=== PATIENT | female | born 1970 | race Caucasian/White ===

== ENCOUNTER → 2021-06-12 10:46 | Outpatient (CLI) | payer OTHER, SELFPAY ==
--- NOTE | ~2021-06-12 | MM_ITS ---
EXAMINATION: MM screening mariel BI w [facility]na HISTORY: Screening TECHNIQUE: Craniocaudal and mediolateral oblique 3-D tomosynthesis images were obtained and synthetic 2-D images were generated. CAD analysis was submitted and interpreted. COMPARISON: No prior mammogram is available for comparison at this institution. BREAST PARENCHYMAL COMPOSITION: There are scattered areas of fibroglandular density. FINDINGS: There is no evidence of suspicious mass, calcification, or architectural distortion to sugg est malignancy in either breast. There has been no suspicious interval change. IMPRESSION: 1. No mammographic evidence of malignancy. 2. Recommend routine screening mammography in one year. BI-RADS Category 1: Negative Reviewed, dictated and finalized at location A.
== END ==
PROVIDERS: Visit Provider Obstetrics & Gynecology
DX: Z12.31 Encounter for screening mammogram for malignant neoplasm of breast (principal)
CPT/HCPCS: 77063; 77067

== ENCOUNTER → 2022-02-21 10:09 | Outpatient (CLI) | payer OTHER, SELFPAY ==
--- NOTE | ~2022-02-21 | US_ITS ---
EXAMINATION: US soft tissue chest DATE: 02/21/2022 10:55 INDICATION: Follicular cyst of the skin and subcutaneous tissue, unspecified. Right chest wall mass w ith pain. TECHNIQUE: Multiple grayscale and Doppler ultrasound images of the chest wall were obtained. COMPARISON: None FINDINGS: There is a 5 mm hypoechoic subcutaneous mass with internal vascular flow in right chest wal l. IMPRESSION: 1. 5 mm hypoechoic subcutaneous mass in right chest wall, most likely inflammation. Reviewed, dictated and finalized at location A. IMPRESSION: 1. 5 mm hypoechoic subcutaneous mass in right chest wall, most likely inflammat ion.
== END ==
PROVIDERS: Visit Provider Student in an Organized Health Care Education/Training Program
DX: L72.8 Other follicular cysts of the skin and subcutaneous tissue (principal)
CPT/HCPCS: 76604

== ENCOUNTER → 2022-04-16 13:39 | Outpatient (CLI) | payer OTHER, SELFPAY ==
--- NOTE | ~2022-04-16 | US_ITS ---
EXAMINATION: US soft tissue chest DATE: 04/16/2022 13:54 INDICATION: Follicular cyst of the skin and subcutaneous tissue, follow-up. TECHNIQUE: Grayscale and Doppler ultrasound images of the right chest soft tissues were obtained. COMPARISON: 02/21/2022 FINDINGS: 6 x 3 x 5 mm hypoechoic ovoid lesion in the dermis in the area of palpable abnormality, wit hout internal vascular flow. IMPRESSION: 1. Dermal cyst, slightly increased in size since the prior study. Reviewed, dictated and finalized at location K.
== END ==
PROVIDERS: PCP Family Medicine; Visit Provider Student in an Organized Health Care Education/Training Program
DX: L72.9 Follicular cyst of the skin and subcutaneous tissue, unspecified (principal); D23.5 Other benign neoplasm of skin of trunk
CPT/HCPCS: 76604

== ENCOUNTER → 2022-11-26 16:15 | Outpatient (CLI) | payer OTHER, SELFPAY ==
--- NOTE | ~2022-11-26 | XR_ITS ---
EXAMINATION: XR lumbar spine 2-3V DATE: 11/26/2022 16:33 INDICATION: Low back pain, unspecified. TECHNIQUE: 3 views of lumbar spine were obtained. COMPARISON: None. FINDINGS: There is 11 degrees levoscoliosis of lumbar spine. There is 3 mm retrolisthesis of L2 on L3 and L4 on L5. Vertebral body heights are normal. There is mildly decreased disc height at L3-L4 and moderately decreased disc height at L4-L5. There is multilevel mild to moderate facet joint osteoarth ritis. IMPRESSION: 1. Moderate lumbar spondylosis. 2. Lumbar levoscoliosis. Reviewed, dictated and finalized at location A. SITE ADMIN
== END ==
PROVIDERS: PCP Family Medicine; Visit Provider Nurse Practitioner Family
DX: M54.30 Sciatica, unspecified side (principal); M47.896 Other spondylosis, lumbar region
CPT/HCPCS: 72100

== ENCOUNTER → 2023-01-02 15:26 | Outpatient (CLI) | payer OTHER, SELFPAY ==
--- NOTE | ~2023-01-02 | XR_ITS ---
XR cervical spine min 6V 01/02/2023 15:50 Indication: Cervicalgia Procedure: 7 views of the cervical spine including flexion and extension views. Comparison: No prior studies for comparison. Findings: There is disc narrowing at C4-5 and C5-6 with prominent dorsal osteophytes at C5-6. There i s reversal of cervical lordosis in neutral position. No significant alteration of alignment with flex ion/extension. No prevertebral soft tissue swelling. Odontoid process within normal limits. There is moderate facet hypertrophy at multiple levels. Lung apices are normal. Impression: 1: Moderate cervical spondylosis with reversal of normal lordosis, possibly due to muscle spasm. Reviewed, dictated and finalized at location A. SETTER Impression: 1: Moderate cervical spondylosis with reversal of normal lordosis, possibly due to muscle spasm.
--- NOTE | ~2023-01-02 | XR_ITS ---
EXAMINATION: XR thoracic spine 3V DATE: 01/02/2023 15:50 INDICATION: Chronic thoracic back pain. Neck pain. TECHNIQUE: 3 views of thoracic spine on 4 radiographs were obtained. COMPARISON: None. FINDINGS: There is 13 degrees levoscoliosis of upper thoracic spine. Vertebral body heights are ashley l. There is mild to moderately decreased disc height at multiple levels in mid thoracic spine. There are endplate osteophytes at most levels. IMPRESSION: 1. Moderate thoracic spondylosis. 2. Thoracic levoscoliosis. Reviewed, dictated and finalized at location A. CARE COORDINATOR
== END ==
PROVIDERS: PCP Family Medicine; Visit Provider Nurse Practitioner Family
DX: M47.894 Other spondylosis, thoracic region (principal); M47.892 Other spondylosis, cervical region
CPT/HCPCS: 72052; 72072

== ENCOUNTER → 2023-01-25 08:24 | Outpatient (CLI) | payer OTHER, SELFPAY ==
--- NOTE | ~2023-01-25 | MR_ITS ---
MRI of the lumbar spine Clinical History: Back pain Technique: Axial T2-weighted images, and sagittal T1-weighted, T2-weighted, and T2 fat-sat images wer e acquired. Findings: There is no fracture or subluxation of the lumbar spine. Vertebral bodies maintain normal h eight and alignment. There are intraosseous hemangiomas at the T12, L2, and L3 levels. No suspicious bone marrow signal abnormality identified. At L1-L2, there is no disc bulge or herniation. No spinal canal stenosis or neural foraminal narrowin g. At L2-L3, there is minimal degenerative disc narrowing with mild right-sided facet arthropathy. No sp inal canal stenosis or neural foraminal narrowing. At L3-L4, there is minimal disc bulge with facet arthropathy. No spinal canal stenosis or neural fora javon narrowing. At L4-L5, there is mild disc bulge. No spinal canal stenosis. There is moderate right neural foramina l narrowing. Left neural foramen is preserved. At L5-S1, there is no disc bulge or herniation. No spinal canal stenosis or neural foraminal narrowin g. Paravertebral soft tissues are unremarkable. Impression: Mild degenerative spondylosis, as detailed above. There is moderate right neural foraminal narrowing at L4-L5. Reviewed, dictated and finalized at [facility]. Impression: Mild degenerative spondylosis, as detailed above. There is moderate right neura l foraminal narrowing at L4-L5.
== END ==
PROVIDERS: PCP Family Medicine; Visit Provider Nurse Practitioner Family
DX: M54.40 Lumbago with sciatica, unspecified side (principal); M47.896 Other spondylosis, lumbar region
CPT/HCPCS: 72148

== ENCOUNTER → 2023-01-25 08:27 | Outpatient (CLI) | payer OTHER, SELFPAY ==
--- NOTE | ~2023-01-25 | MR_ITS ---
MRI of the cervical spine Clinical History: Neck pain Technique: Axial T2-weighted and gradient images, and sagittal T1-weighted, T2-weighted, and STIR gil ges were acquired. Findings: There is no fracture or subluxation of the cervical spine. Vertebral bodies maintain normal height and alignment. There is mild reversal of the normal cervical lordosis. No focal bone marrow s ignal abnormality seen. At C2-C3, there is no disc bulge or herniation. No spinal canal stenosis, cord compression, or neural foraminal narrowing. At C3-C4, there is minimal disc bulge. No spinal canal stenosis, cord compression, or neural foramina l narrowing. At C4-C5, there is disc osteophyte complex, most prominent at the left paracentral to left foraminal region. There may be minimal flattening of the ventral cord on the left side. There is probable minim al left neural foraminal compromise. Right neural foramen preserved. At C5-C6, there is disc osteophyte complex eccentric in the left paracentral region. No spinal canal stenosis, cord compression, or right neural foraminal narrowing. Left neural foramen is significantly narrowed. At C6-C7, there is no disc bulge or herniation. No spinal canal stenosis, cord compression, or neural foraminal narrowing. No abnormal signal seen in the spinal cord. Paravertebral soft tissues are unremarkable. Impression: Left neural foraminal narrowing at C4-C5 and C5-C6, related to left paracentral disc osteophyte compl exes. Possible minimal flattening of the left ventral cord at C4-C5. Reviewed, dictated and finalized at location . Impression: Left neural foraminal narrowing at C4-C5 and C5-C6, related to left paracentral disc osteophyte complexes. Possible minimal flattening of the left ventral cord at C4-C5.
== END ==
PROVIDERS: PCP Family Medicine; Visit Provider Nurse Practitioner Family
DX: M54.2 Cervicalgia (principal)
CPT/HCPCS: 72141

== ENCOUNTER → 2023-06-18 10:06 | Outpatient (CLI) | payer OTHER, SELFPAY ==
--- NOTE | ~2023-06-18 | MM_ITS ---
EXAMINATION: MM screening mariel BI w meghna HISTORY: Screening mammogram TECHNIQUE: Craniocaudal and mediolateral oblique 3-D tomosynthesis images were obtained and synthetic 2-D images were generated. CAD analysis was submitted and interpreted. COMPARISON: 06/12/2021, 01/09/2011 BREAST PARENCHYMAL COMPOSITION: There are scattered areas of fibroglandular density. FINDINGS: RIGHT BREAST: No suspicious mass, calcification, or architectural distortion are identified to sugges t malignancy. There has been no suspicious interval change. LEFT BREAST: There is a possible mass in the middle third of the outer breast best appreciated 5 cm f rom the nipple on the craniocaudal view. IMPRESSION: 1. Possible left breast mass. 2. Additional mammographic views and possible breast ultrasound are recommended. BI-RADS Category 0: Incomplete: Needs additional imaging evaluation. Reviewed, dictated and finalized at location A. IMPRESSION: 1. Possible left breast mass. 2. Additional mammographic views and possible breast ultrasound are recommended . BI-RADS Category 0: Incomplete: Needs additional imaging evaluation.
== END ==
PROVIDERS: PCP Nurse Practitioner Family; Visit Provider Obstetrics & Gynecology
DX: Z12.31 Encounter for screening mammogram for malignant neoplasm of breast (principal); R92.8 Other abnormal and inconclusive findings on diagnostic imaging of breast
CPT/HCPCS: 77063; 77067

== ENCOUNTER → 2023-07-10 07:36 | Outpatient (CLI) | payer OTHER, SELFPAY ==
--- NOTE | ~2023-07-10 | MMUS_ITS ---
EXAMINATION: MM diagnostic mariel LT w meghna, US breast LT limited HISTORY: Possible left breast mass on screening mammogram TECHNIQUE: Additional 3-D tomosynthesis images of the left breast were performed and synthetic 2-D im ages were generated. CAD analysis was submitted and interpreted. High resolution limited left breast ultrasound was performed. COMPARISON: 06/18/2023, 06/12/2021, 01/09/2021 FINDINGS: MAMMOGRAPHIC FINDINGS: An asymmetry persists in the middle third of the outer breast 7 cm from the nipple. No definite assoc iated mass is identified. There is a 4 mm obscured equal density mass in the subareolar breast. ULTRASOUND: There is no evidence of focal abnormal solid or cystic mass in the vicinity of the mammographic asymm etry. A 3 mm cyst is noted at the 2:00 location in the subareolar breast. There is a 3 mm cyst at the 2:00 location, 2.5 cm from the nipple and a 6 mm x 3 mm cyst at the 2:00 location, 11 cm from the ni pple. IMPRESSION: 1. Probably benign left breast asymmetry. 2. Recommend 6 month follow-up left diagnostic mammogram and possible ultrasound. BI-RADS category 3, probably benign findings. Reviewed, dictated and finalized at location L. IMPRESSION: 1. Probably benign left breast asymmetry. 2. Recommend 6 month follow-up left diagnostic mammogram and possible ultrasoun d. BI-RADS category 3, probably benign findings.
== END ==
PROVIDERS: PCP Family Medicine; Visit Provider Obstetrics & Gynecology
DX: R92.8 Other abnormal and inconclusive findings on diagnostic imaging of breast (principal)
CPT/HCPCS: 76642; 77061; 77065; G0279

== ENCOUNTER 2023-07-25 12:47 | Outpatient (CLI) | payer OTHER, SELFPAY ==
--- NOTE | ~2023-07-25 | MR_ITS ---
MR breast BI wo/w con 07/25/2023 15:06 CDT INDICATION: Follow-up left breast asymmetry TECHNIQUE: MRI of the breasts perform using standard protocol pre-and post IV contrast with the follo wing sequences: Axial T2 STIR, axial T1, axial vibrant T1 with fat suppression precontrast and multip hasic postcontrast. 19 cc MultiHance administered intravenously COMPARISON: Mammogram dated 06/18/2023 and diagnostic left mammogram and ultrasound dated 07/10/2023 FINDINGS: There are no abnormalities on the precontrast sequences. There is moderate background paren chymal enhancement. No enhancing lesions following contrast administration. No areas of enhancement meeting threshold criteria on CAD analysis. No evidence of signal abnormalities in the axillary or internal mammary node distributions. LEFT BREAST: No signal abnormalities on precontrast sequences. There is moderate background parenchy mal enhancement. At 4:00 in the lower outer quadrant, middle aspect of the left breast, 6.7 cm from t he nipple, there is an area of nonmass-like enhancement measuring 2.3 x 6.6 x 0.5 cm with plateau enh ancement. In the anterior central aspect of the left breast 2.9 cm from the nipple there is an area o f nonmass-like enhancement measuring 4.3 x 3.1 x 2.4 cm with rapid plateau enhancement. At 4:00 in th e lower outer quadrant posteriorly 9.4 cm posterior to the nipple there is a mass with heterogeneous enhancement rapid washout enhancement measuring 1.3 x 0.6 x 1.4 cm. At 1:00 in the upper outer quadra nt of the left breast, middle third, 6.5 cm posterior to the nipple there is a 6 x 8 x 4 mm hyperinte nse mass with rapid plateau enhancement. In the anterior central aspect of the left breast 4.9 cm fro m the nipple there is a hyperintense mass with rapid washout enhancement measuring 5 x 3 x 3 mm. At 2 :00 in the upper outer quadrant of the left breast there is a slightly hyperintense linear shaped foc i, a 0.5 cm posterior to the nipple measuring 4 x 2 x 2 mm with rapid plateau enhancement. At 9:00 in the upper inner quadrant, 10 cm from the nipple there is a foci of rapid washout enhancement measuri ng 4 x 3 x 2 mm which is hypointense on T1 precontrast. No areas of enhancement meeting threshold cri teria on CAD analysis. No evidence of signal abnormalities in the axillary or internal mammary node distributions.] IMPRESSION: 1: Right breast: Negative. No evidence of malignancy. BI-RADS category 1. Recommend annual mammo graphy follow-up. 2: Left breast: Multiple left breast masses described above. Recommend repeat second look complete l eft breast ultrasound with attention to the areas of interest seen on MRI examination. BI-RADS CATEGORY 0 - INCOMPLETE STUDY, NEED ADDITIONAL IMAGING EVALUATION. . Reviewed, dictated and finalized at location B. IMPRESSION: 1: Right breast: Negative. No evidence of malignancy. BI-RADS category 1. Recommend annual mammography follow-up. 2: Left breast: Multiple left breast masses described above. Recommend repeat second look complete left breast ultrasound with attention to the areas of inte rest seen on MRI examination. BI-RADS CATEGORY 0 - INCOMPLETE STUDY, NEED ADDITIONAL IMAGING EVALUATION. .
== END 2023-07-25 12:48 | disposition home or self-care (01) ==
PROVIDERS: PCP Family Medicine; Visit Provider Physician Assistant Surgical
DX: R92.8 Other abnormal and inconclusive findings on diagnostic imaging of breast (principal)
CPT/HCPCS: 77049; A9577; C8908

== ENCOUNTER 2023-08-21 11:58 | Outpatient (CLI) | payer OTHER, SELFPAY ==
--- NOTE | ~2023-08-21 | US_ITS ---
US breast LT complete DATE: 08/21/2023 13:09 INDICATION: MR left breast findings TECHNIQUE: Real-time imaging of the left breast was performed for correlation with 07/25/2020 the MR b reast examination. COMPARISON: 07/25/2020 the MR breast examination 07/10/2023 diagnostic left mammogram and limited left breast ultrasound 06/18/2023 bilateral screening mammogram FINDINGS: 12:00 2 cm from nipple: Approximately 2.3 x 5.3 mm cyst 2:00 2 cm from nipple: 1.8 x 3.3 mm cyst 2:00 near nipple: 2.4 x 3.4 mm circumscribed sonolucent lesion, likely a simple cyst 3:00 5 cm from nipple: No abnormality is noted 9:00 10 cm from nipple: 7.4 x 8.6 mm circumscribed hyperechoic lesion, likely a benign lipoma No suspicious mass or suspicious shadowing is detected. IMPRESSION: BI-RADS Category 3: Probably benign Recommendation: Six-month (approximately January 08, 2024) diagnostic left mammogram and left breast ultrasound follow-up examination were recommended on 07/10/2023 Reviewed, dictated and finalized at Location A. Reviewed, dictated and finalized at location A. IMPRESSION: BI-RADS Category 3: Probably benign Recommendation: Six-month (approximately January 08, 2024) diagnostic left mariel mogram and left breast ultrasound follow-up examination were recommended on 06/12
== END 2023-08-21 11:59 | disposition home or self-care (01) ==
LOC: ANHIMG 12:01
PROVIDERS: PCP Family Medicine; Visit Provider Obstetrics & Gynecology
DX: R92.8 Other abnormal and inconclusive findings on diagnostic imaging of breast (principal)
CPT/HCPCS: 76641

== ENCOUNTER 2024-02-11 14:23 | Outpatient (CLI) | payer OTHER, SELFPAY ==
--- NOTE | ~2024-02-11 | US_ITS ---
US breast LT complete 02/11/2024 15:27 Indication: Follow-up bilateral breast masses. Procedure: High-resolution complete left breast ultrasound including all 4 quadrants in the subareola r location Comparison: Ultrasound dated 08/21/2023 and MRI dated 07/25/2023 Findings: At 12:00, 1 cm from the nipple, there are 2 adjacent cysts measuring up to 8 mm in conglome rate. At 1:00, 3 cm from the nipple there is a 4 mm cyst. At 6:00, 1 cm from the nipple there is a cl uster of microcysts measuring 4 mm. At 9:00, 10 cm from the nipple there is an oval parallel oriented hyperechoic mass, likely benign lipoma measuring 1 cm. No suspicious masses to suggest malignancy. Impression: 1: No sonographic evidence for malignancy. Routine yearly screening mammogram and regular clinical breast examination are recommended. BI-RADS CATEGORY 2 - BENIGN FINDINGS Reviewed, dictated and finalized at location A. Impression: 1: No sonographic evidence for malignancy. Routine yearly screening mammogram and regular clinical breast examination are recommended. BI-RADS CATEGORY 2 - BENIGN FINDINGS
== END 2024-02-11 14:24 | disposition home or self-care (01) ==
LOC: ANHIMG 14:27
PROVIDERS: PCP Family Medicine; Visit Provider Surgery
DX: R92.8 Other abnormal and inconclusive findings on diagnostic imaging of breast (principal)
CPT/HCPCS: 76641

== ENCOUNTER 2024-04-20 05:56 | Day surgery (SDC) | payer OTHER, SELFPAY ==
[2024-01-28 10:09] VITALS: BMI 32.8
--- NOTE | 2024-04-13 10:13 | PM.HPGS ---
History of Present Illness History of Present Illness Consent: Risks, benefits, and alternatives have been discussed and questions answered. Patient agrees to proceed with procedure. Chief complaint: Neoplasm screening Narrative: Greta Clemens is a 54 year old female who is referred for colon cancer screening. Review of Systems Review of Systems: All systems reviewed & are unremarkable except as noted in HPI and below PMFSH Past Medical History Medical History Cutaneous cyst History of miscarriage x 3 History of vaginal delivery x3 Surgical History Surgical History History of ankle surgery 2019 History of dilation and curettage x 2 1990 and 1999 Hx of removal of cyst [place] teeth removed Family History Family History Father Asthma History of skin cancer Diabetes mellitus Mother Depression Sibling History of skin cancer Grandparent History of skin cancer Heart disease Cerebrovascular accident Thyroid disorder Other Family history of malignant neoplasm of cervix Social History Social History Smoking status: Never smoker Second hand tobacco smoke exposure: No Alcohol intake: current Alcohol use details: 0-1 drinks per week Substance use: never Substance use type: does not use Lack of Transportation: No Lack of Food: Never True Current Housing: I Have Housing Concerned About Future Housing: No Difficulty Paying Gas/Electric Bills: No Difficulty Paying for Meds: No Currently Unemployed: No Education: Associate Degree Difficulty w/ Childcare or Family Care: No Living arrangements: with family Occupation/Education: occupation 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 Gender identity (if verbalized by the patient): Female Sexual Orientation (if Verbalized by the Patient): Straight or Heterosexual Spiritual care concerns: No Agree to blood products: Yes Meds Home Medications and Allergies Home Medications Medication Instructions Recorded Confirmed Type calcium carbonate 600 mg-vitamin 1 cap PO DIRECTED 05/01/22 04/20/24 History D3 12.5 mcg (500 unit) capsule (Calcium 600 with Vitamin D3) vitamin B complex (B 1 tablet PO DAILY 05/01/22 04/20/24 History Complex-Vitamin B12 tablet) nystatin-triamcinolone 100,000 1 applic topical BID PRN external 06/18/23 04/20/24 Rx unit/g-0.1 % topical cream vaginal irritation #15 grams escitalopram oxalate 10 mg tablet 10 mg PO DAILY #90 tabs 12/02/23 04/20/24 Rx naproxen 500 mg tablet 500 mg PO BID PRN pain #60 tabs 12/02/23 04/20/24 Rx Allergies Allergy/AdvReac Type Severity Reaction Status Date / Time No Known Allergies Allergy Verified 04/20/24 06:21 Exam Resp: Auscultation: clear to auscultation bilaterally Cardio: Rate: regular rate Rhythm: regular rhythm GI: GI Palp: Yes Soft to palpation and No Tenderness to palpation present (GI) Assessment and Plan Assessment and plan (1) Colon cancer screening: Code(s): Z12.11 - Encounter for screening for malignant neoplasm of colon Status: Acute Assessment and Plan: Colonoscopy with possible biopsy or polypectomy or cautery or injection of substances.
[2024-04-20 06:30] VITALS: BMI 33.0
[2024-04-20 06:31] VITALS: BP 124/92; PULSE 100; RESP 18; TEMP 37.2; O2SAT 100
[2024-04-20] MEDS: LACTATED RINGERS 1,000 ML 150 ML IV CONT (07:18)
--- NOTE | 2024-04-20 07:19 | WPDANESEPPF ---
Anes - Initial Pre Proc Eval Procedure: Operation Date: 04/20/24 07:30 Proposed Procedures p Screening Colonoscopy - Kulwinder Lyons MD Date/Time: 04/20/24 07:19 Surgeon: Kulwinder Lyons MD Pre Op Diagnosis: Neoplasm screening Patient Data Age: 54 Gender: F Height: 1.75 m Weight: 101.4 kg Last Vital Signs Temp 37.2 C 04/20/24 06:31 Pulse 100 04/20/24 06:31 Resp 18 04/20/24 06:31 BP 124/92 H 04/20/24 06:31 Pulse Ox 100 04/20/24 06:31 O2 Del Method Room Air 04/20/24 06:31 Allergies Allergy/AdvReac Type Severity Reaction Status Date / Time No Known Allergies Allergy Verified 04/20/24 06:21 Home Medications Medication Instructions Recorded Confirmed Type calcium carbonate 600 mg-vitamin 1 cap PO DIRECTED 05/01/22 04/20/24 History D3 12.5 mcg (500 unit) capsule (Calcium 600 with Vitamin D3) vitamin B complex (B 1 tablet PO DAILY 05/01/22 04/20/24 History Complex-Vitamin B12 tablet) nystatin-triamcinolone 100,000 1 applic topical BID PRN external 06/18/23 04/20/24 Rx unit/g-0.1 % topical cream vaginal irritation #15 grams escitalopram oxalate 10 mg tablet 10 mg PO DAILY #90 tabs 12/02/23 04/20/24 Rx naproxen 500 mg tablet 500 mg PO BID PRN pain #60 tabs 12/02/23 04/20/24 Rx Patient hx anesthesia problems: none Family hx anesthesia problems: none Results Review: All pre-operative results and documents have been reviewed as part of the pre-operative evaluation. [facility] Past Medical History Medical History Cutaneous cyst History of miscarriage x 3 History of vaginal delivery x3 Surgical History Surgical History History of ankle surgery 2019 History of dilation and curettage x 2 1990 and 1999 Hx of removal of cyst [place] teeth removed Family History Family History Father Asthma History of skin cancer Diabetes mellitus Mother Depression Sibling History of skin cancer Grandparent History of skin cancer Heart disease Cerebrovascular accident Thyroid disorder Other Family history of malignant neoplasm of cervix Social History Social History Smoking status: Never smoker Second hand tobacco smoke exposure: No Alcohol intake: current Alcohol use details: 0-1 drinks per week Substance use: never Substance use type: does not use Lack of Transportation: No Lack of Food: Never True Current Housing: I Have Housing Concerned About Future Housing: No Difficulty Paying Gas/Electric Bills: No Difficulty Paying for Meds: No Currently Unemployed: No Education: Associate Degree Difficulty w/ Childcare or Family Care: No Living arrangements: with family Occupation/Education: occupation 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 Gender identity (if verbalized by the patient): Female Sexual Orientation (if Verbalized by the Patient): Straight or Heterosexual Spiritual care concerns: No Agree to blood products: Yes Anes - Eval Final PreProcedure Day of Procedure 04/20/24 07:19 Patient weight: obese Heart: regular rate and rhythm Lungs: clear to auscultation Airway: Mallampati scale class II Neurological: alert and oriented Last oral intake: >/= 8 hours ASA classification: II Emergent: no Anesthetic plan: proceed Anesthesia type and monitoring: general GIVS and standard monitoring Results Review: All pre-operative results and documents have been reviewed as part of the pre-operative evaluation. Informed Consent: The patient's anesthetic plan and its attendant risks and benefits were discussed with the patient/family/POA. Questions were solicited and answers provided to the satisfaction of the patient/family/POA.
--- NOTE | 2024-04-20 07:35 | SUR.OPER ---
Scope 833 not functioning properly, exchanged for new scope #834. Procedure resumed
[2024-04-20 07:44] VITALS: BP 99/75; PULSE 86; RESP 15; O2SAT 95
[2024-04-20 07:54] VITALS: BP 112/72; PULSE 81; RESP 16; O2SAT 97
--- NOTE | 2024-04-20 07:58 | WPDANESPN ---
Anes - Prog Note Post-Op Date/Time: 04/20/24 07:58 Cardiovascular status: normal Respiratory status: normal Airway patency: baseline Mental status: baseline Post-Op hydration status: normal Vital Signs: Last Vital Signs Temp 37.2 C 04/20/24 06:31 Pulse 81 04/20/24 07:54 Resp 16 04/20/24 07:54 BP 112/72 04/20/24 07:54 Pulse Ox 97 04/20/24 07:54 O2 Del Method Room Air 04/20/24 07:54 Pain Score (VAS): 0/10 I/O: Intake & Output 04/19/24 04/19/24 04/20/24 15:59 23:59 07:59 Intake Total 700 Balance 700 Patient Feedback: Patient satisfied with anesthetic care.
[2024-04-20 08:04] VITALS: BP 105/80; PULSE 75; RESP 16; O2SAT 99
== END 2024-04-20 08:10 | disposition home or self-care (01) ==
PROVIDERS: PCP Family Medicine; Visit Provider Internal Medicine Gastroenterology
PROC: 0DJD8ZZ Inspection of Lower Intestinal Tract, Via Natural or Artificial Opening Endoscopic (ICD-10-PCS; CPT 45378; principal; 2024-04-20 07:30)
DX: Z12.11 Encounter for screening for malignant neoplasm of colon (principal); K57.30 Diverticulosis of large intestine without perforation or abscess without bleeding
CPT/HCPCS: 45378

== ENCOUNTER 2025-03-21 13:17 | Outpatient (CLI) | payer OTHER, SELFPAY ==
--- NOTE | ~2025-03-21 | MM_ITS ---
EXAMINATION: MM screening mariel BI w me[facility]na HISTORY: Screening mammogram TECHNIQUE: Craniocaudal and mediolateral oblique 3-D tomosynthesis images were obtained and synthetic 2-D images were generated. CAD analysis was submitted and interpreted. COMPARISON: 06/18/2023, 06/12/2021 BREAST PARENCHYMAL COMPOSITION:Not Dense. There are scattered areas of fibroglandular density. FINDINGS: No suspicious mass, calcification, or architectural distortion are identified in either lucero ast to suggest malignancy. There has been no suspicious interval change. IMPRESSION: No mammographic evidence of malignancy. Recommend routine screening mammography in one year. BI-RADS Category 1: Negative Reviewed, dictated and finalized at location .
== END 2025-03-21 13:18 | disposition home or self-care (01) ==
LOC: CHSIMG 13:19
PROVIDERS: PCP Family Medicine; Visit Provider Obstetrics & Gynecology
DX: Z12.31 Encounter for screening mammogram for malignant neoplasm of breast (principal)
CPT/HCPCS: 77063; 77067